=== PATIENT | male | born 1965 | race African-American/Black ===

== ENCOUNTER 2022-01-28 03:33 | Emergency (ER) | payer SELFPAY ==
--- NOTE | 2022-01-28 03:38 | NUR ---
Pt left without being triaged.
== END 2022-01-28 03:43 | disposition left against medical advice (07) ==
LOC: ER 03:42
DX: Z53.21 Procedure and treatment not carried out due to patient leaving prior to being seen by health care provider (principal)

== ENCOUNTER 2022-07-17 04:09 | Emergency (ER) | payer OTHER ==
[~2022-07-17] VITALS: Ht 190.5 cm; Wt 117.9 kg
[2022-07-17] MEDS ORDERED: MUPI22OI2 TP (05:32)
[2022-07-17] MEDS ORDERED: SULF1TAB48 PO (05:32)
[2022-07-17] MEDS ORDERED: SULFAMETH/TRIMETH 800/160 MG TABLET ONE (05:35)
[2022-07-17] MEDS: SULFAMETH/TRIMETH 800/160 MG TABLET PO ONE (05:38)
--- NOTE | 2022-07-17 05:40 | NUR ---
Patient discharged to home in stable condition. Written and verbal after care instructions given. Patient verbalizes understanding of instructions. Stressed follow up or return to ER for worsening s/s. Patient is a/ox4, NAD noted. patient ambulated with steady gait
[2022-07-17 05:41] VITALS: BP 128/54
== END 2022-07-17 05:41 | disposition home or self-care (01) ==
LOC: ER 04:20
DX: R60.0 Localized edema (principal); F17.210 Nicotine dependence, cigarettes, uncomplicated
CPT/HCPCS: A4663